=== PATIENT | male | born 1970 | race Caucasian/White ===

== ENCOUNTER 2017-09-04 07:25 | Day surgery (SDC) | payer OTHER, BC ==
[~2017-09-04] VITALS: Ht 180.3 cm; Wt 111.1 kg
[~2017-09-04 07:25] MED LIST: COZAAR50 MG PO; PERCOCET 5/31 TABLET PO
[2017-09-04 07:56] VITALS: BP 135/88
[2017-09-04 08:28] VITALS: BP 135/88
[2017-09-04] MEDS ORDERED: PERCOCET 5/31 TABLET PO (13:16)
[2017-09-04] MEDS ORDERED: DIAZEPAM10 MG PO (13:19)
[2017-09-04] MEDS ORDERED: OXYCODONE-APAP1 EACH PO (13:19)
[2017-09-04 14:40] VITALS: BP 138/89
[2017-09-04 15:30] VITALS: BP 139/93
[2017-09-04 16:15] VITALS: BP 137/82
== END 2017-09-04 16:28 | disposition home or self-care (01) ==
LOC: SDC 07:25
DX: M51.26 Other intervertebral disc displacement, lumbar region (principal); M79.604 Pain in right leg
CPT/HCPCS: 72020; 76000; J0131; J0330; J1100; J1170; J1885; J2250; J2405; J2710; J3010; J3370